=== PATIENT | male | born 1990 | race Caucasian/White ===

== ENCOUNTER 2022-04-01 11:08 | Emergency (ER) | payer OTHER ==
[2022-04-01 11:44] LABS: BASOPHIL 0.5 % (0-2); EOSINOPHIL 4.2 % (0-5); HCT 44.1 % (42.0-52.0); HGB 15.6 g/dl (13.2-18.0); LYMPHOCYTE 23.9 % (15-48); MCH 30.6 pg (25.0-31.0); MCHC 35.4 g/dL (32.0-36.0); MCV 86.5 fL (78.0-100.0); MONOCYTE 7.1 % (0-12); MPV 8.9 fL (6.0-9.5); NRBC 0; PLT 361 K/uL (150-400); RDW 12.3 % (11.5-14.0); WBC 7.4 K/uL (4.0-10.5)
[2022-04-01 12:05] LABS: BUN/CREAT RATIO (CALC) 15.6 RATIO; CREATININE 0.77 mg/dL (0.67-1.17); POTASSIUM 4.4 mmol/L (3.5-5.1)
[2022-04-01] MEDS ORDERED: NAPROXEN500 MG PO (12:48)
== END 2022-04-01 13:00 | disposition home or self-care (01) ==
LOC: FER 11:08
PROVIDERS: Emergency Medicine
DX: M94.0 Chondrocostal junction syndrome [Tietze] (principal); I10 Essential (primary) hypertension; F17.290 Nicotine dependence, other tobacco product, uncomplicated; Z28.310 Unvaccinated for COVID-19
CPT/HCPCS: 36415; 71046; 80048; 84484; 85025; 93005